=== PATIENT | male | born 1990 | race Caucasian/White ===

== ENCOUNTER 2021-12-07 15:19 | Emergency (ER) | payer OTHER ==
[~2021-12-07] VITALS: Ht 172.7 cm; Wt 68.2 kg
[2021-12-07 16:05] VITALS: BP 118/76
[2021-12-07] MEDS ORDERED: HYDR-4527 PO (16:07)
[2021-12-12 15:06] LABS: HEPATITIS C AB (EIA) >11.0 s/co ratio (0.0-0.9); HEPATITIS C RT-PCR,QNT 99600 IU/mL
== END 2021-12-07 16:25 | disposition home or self-care (01) ==
LOC: EMS 15:24
DX: F41.9 Anxiety disorder, unspecified (principal); F32.A Depression, unspecified; F41.0 Panic disorder [episodic paroxysmal anxiety]; F17.210 Nicotine dependence, cigarettes, uncomplicated; F15.90 Other stimulant use, unspecified, uncomplicated; Z98.890 Other specified postprocedural states; Z20.5 Contact with and (suspected) exposure to viral hepatitis; Z88.1 Allergy status to other antibiotic agents; Z88.0 Allergy status to penicillin
CPT/HCPCS: 80074; 87522; 99283